=== PATIENT | female | born 1945 | race Caucasian/White ===

== ENCOUNTER 2016-07-07 11:52 | Emergency (ER) | payer MEDICARE | END 2016-07-07 15:26 | disposition home or self-care (01) | LOC: ER1 11:52 | DX: T82.594A Other mechanical complication of infusion catheter, initial encounter (principal); Y83.8 Other surgical procedures as the cause of abnormal reaction of the patient, or of later complication, without mention of misadventure at the time of the procedure; Z88.1 Allergy status to other antibiotic agents; I10 Essential (primary) hypertension; J44.9 Chronic obstructive pulmonary disease, unspecified | CPT/HCPCS: 99283 ==

== ENCOUNTER → 2016-07-21 | Outpatient (CLI) | payer MEDICARE, BC ==
[~2016-07-21] VITALS: Ht 160 cm; Wt 60.3 kg
== END ==
LOC: OPSV 11:00
DX: T82.594A Other mechanical complication of infusion catheter, initial encounter (principal); Z45.2 Encounter for adjustment and management of vascular access device
CPT/HCPCS: 96374; J1642; J2997

== ENCOUNTER → 2021-08-16 | Outpatient (CLI) | payer MEDICARE, BC | LOC: RT 12:02 | DX: I10 Essential (primary) hypertension (principal) | CPT/HCPCS: 93005 ==